=== PATIENT | female | born 1990 | race Two or more races ===

== ENCOUNTER 2024-10-19 21:48 | Emergency (ER) | payer MEDICAID, OTHER ==
[~2024-10-19] VITALS: Ht 175.3 cm; Wt 56.8 kg
[2024-10-19 22:13] VITALS: BP 105/35; PULSE 113; RESP 16; TEMP 99; O2SAT 99
--- NOTE | 2024-10-20 01:55 | ED.PDOC ---
History of Present Illness HPI Comments 33-year-old female who is brought in by ambulance from private residence for chief complaint of nonradiating, LUQ abdominal pain, poor appetite, constipation, and a shortness of passing any gas, headache, and fever. Per EMS report, patient reports 3 day history of constipation, with remaining symptoms persisting since onset, yesterday. Significant history of asthma and UTI she was 'diagnosed' with 1 week ago. She reports no current antibiotic regimen placement for aforementioned UTI. Vitals were all stable and within normal limits. Patient denies having any nausea, vomiting, diarrhea, chills, or further associated symptoms. Chief Complaint: Abdominal Pain Time Seen by MD: 22:10 Reviewed Notes: Nurses Notes, School Bus Driver/Custodian Notes, Medications, Allergies Information Source: Patient, Emergency Med Personnel Mode of Arrival: EMS Severity: Moderate Timing: Days Duration: Since onset Prehospital treatment: 12 Lead EKG, Top Flavor Attendant Review of Systems: REVIEW OF SYSTEMS: No fever, no chills, HEENT: No neck pain, no blurred vision Cardiac: No chest pain. No palpitations. Lungs: No shortness of breath, GI: LUQ abdominal pain, constipation, poor appetite, no vomiting : UTI symptoms Musculoskeletal: No joint pain , no back pain Skin: No rash, no wound Neuro: headache, no dizziness, no syncope Vital Signs Vital Signs Date Time Temp Pulse Resp B/P (MAP) Pulse Ox O2 Delivery O2 Flow Rate FiO2 10/19/24 22:13 99.0 113 16 105/35 (58) 99 99.0 Physical Exam General: Awake, alert and oriented. No acute distress. Skin: Skin in warm, dry and intact without rashes or lesions. HEENT: The head is normocephalic and atraumatic. Conjunctivae are clear without exudates or hemorrhage. Sclera is non-icteric. Neck: Normal range of motion. No JVD. Cardiac: Regular rate Respiratory: No signs of respiratory distress. No Stridor. Extremities: Upper and lower extremities are atraumatic in appearance without d eformity. Neurological: The patient is awake, alert and oriented to person, place, and time with normal speech. Speech is clear. There is no facial asymmetry. Psychiatric: Appropriate mood and affect. Good judgement and insight. 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 Was a procedure done?: No Differential Dx Considerations may include: Differential diagnoses considered include: Abdominal aortic aneurysm, IA, e sophageal rupture, intestinal obstruction, mesenteric ischemia, perforated viscus or solid organ rupture, CHF with hepatomegaly, pneumonia, abscess, appendicitis, biliary disease, diverticulitis, gastritis, gastroenteritis, hepatitis, hernia, inflammatory bowel disease, pancreatitis, peptic ulcer disease, urinary tract infection, ureteral colic, constipation, GERD, irritable syndrome, abdominal wall pain, nonspecific abdominal pain, herpes zoster, nephrolithiasis. [ ]Also ruptured ectopic , ovarian torsion/cyst, tubo- ovarian abscess, PID, endometriosis, mittleschmerz. X-Ray, Labs, Meds, VS Vital Signs Date Time Temp Pulse Resp B/P (MAP) Pulse Ox O2 Delivery O2 Flow Rate FiO2 10/19/24 22:13 99.0 113 16 105/35 (58) 99 99.0 Time of 1ST Reevaluation: 22:20 Reevaluation 1ST: Unchanged Patient Education/Counseling: Other (Leaving against medical advice) Family Education/Counseling: No Family Present SEPSIS Sepsis Screen Date sepsis recognized/suspect: Oct 19, 2024 Time Sepsis recognized/suspect: 2204 Recent Procedure: No On Antibiotic Therapy: No Respiratory Rate >20: No Heart Rate >90: Yes Temp<36 C (96.8 F) or >38.3 C: No SBP <90 or MAP <65 mmHG: No New Acute Mental Status Change: No Is the patient on CPAP, BIPAP,: No Vital Signs Date Time Temp Pulse Resp B/P (MAP) Pulse Ox O2 Delivery O2 Flow Rate FiO2 10/19/24 22:13 99.0 113 16 105/35 (58) 99 99.0 Departure 1 Departure Time of Disposition: 22:30 Impression: Primary Impression: Abdominal pain Additional Impression: Left against medical advice Disposition: 07 LEFT AGAINST MEDICAL ADVICE Condition: Other Additional Instructions: YOU DECIDED TO LEAVE AGAINST MEDICAL ADVICE TODAY. You have been informed of the benefits of staying such as further diagnosis and treatment of possible serious cause of your symptoms, and the risks of leaving such as , chronic pain, permanent disability or other serious adverse events which might be attributed to leaving. You may return here at any time if you change their mind or need to further concerns. It is very important that you follow up with your primary care provider for follow up as soon as possible. Comments Initial evaluation and interview with the patient performed on her arrival to the ED. Patient declined further evaluation. Despite our efforts, patient has decided to leave against medical advice. The patient has a normal mental status and full decisional capacity. Patient has been informed of the benefits of staying such as further diagnosis and treatment of possible serious etiology of the symptoms, and the risks of leaving such as , chronic pain, permanent disability or other serious adverse events which might be attributed to leaving. The patient displays clear understanding of these benefits and risks and chooses to leave. The patient is been informed also that they may return here at any time if they change their mind or need to further concerns or questions has been referred to their local medical physician for follow up JOSS. Additional information was gathered from interviewing the following independent historians: EMS Critical Care Note Critical Care Time?: No Stability Stability form required: No Heart Score Heart Score: Heart Score Response (Comments) Value History N/A 0 EKG N/A 0 Age N/A 0 Risk Factors N/A 0 Troponin N/A 0 Total 0 I personally scribed for OSBALDO CHAKRABORTY MD ([email or web address]) on 10/20/24 at 01:55. Electronically submitted by Michael Guerra ([email or web address]). OSBALDO CHAKRABORTY MD Oct 20, 2024 01:55
== END 2024-10-19 22:09 | disposition left against medical advice (07) ==
LOC: ER 21:48 → EDBD 21:48 → ER 22:09
DX: R10.12 Left upper quadrant pain (principal); F41.9 Anxiety disorder, unspecified; J45.909 Unspecified asthma, uncomplicated; F32.A Depression, unspecified; Z87.440 Personal history of urinary (tract) infections; Z87.898 Personal history of other specified conditions